=== PATIENT | male | born 1960 | race African-American/Black ===

== ENCOUNTER 2017-03-12 15:54 | Emergency (ER) | payer OTHER ==
[~2017-03-12] VITALS: Ht 175.3 cm; Wt 102.1 kg
[~2017-03-12 15:54] MED LIST: FLEXERIL PO; NAPROSYN500 MG PO; NOHOMEMEDICATIONS; NORCO 5-325 TA1 EACH PO
[2017-03-12] MEDS ORDERED: AMLODIPINE BESY10 MG PO (16:13)
[2017-03-12] MEDS ORDERED: CHLORTHALIDONE25 MG PO (16:14)
[2017-03-12] MEDS ORDERED: NAPROSYN500 MG PO (16:37)
[2017-03-12] MEDS ORDERED: NORFLEX100 MG PO (16:37)
== END 2017-03-12 17:14 | disposition home or self-care (01) ==
LOC: ER 15:54
DX: G89.29 Other chronic pain (principal); M54.5 Low back pain; Z90.49 Acquired absence of other specified parts of digestive tract

== ENCOUNTER 2019-01-06 11:06 | Emergency (ER) | payer OTHER ==
[~2019-01-06] VITALS: Ht 175.3 cm; Wt 95.3 kg
[~2019-01-06 11:06] MED LIST changes: +AMLODIPINE BESY10 MG PO; +CHLORTHALIDONE25 MG PO; +NORFLEX100 MG PO
[2019-01-06 11:08] VITALS: BP 169/68
[2019-01-06] MEDS ORDERED: NORCO 5-325 TA1 EAC1 PO (11:45)
[2019-01-06] MEDS ORDERED: CYCLOBENZAPRINE5 MG PO (11:45)
[2019-01-06] MEDS ORDERED: MOBIC15 MG PO (11:45)
== END 2019-01-06 11:50 | disposition home or self-care (01) ==
LOC: ER 11:06
DX: M54.5 Low back pain (principal); G89.29 Other chronic pain; Z90.49 Acquired absence of other specified parts of digestive tract

== ENCOUNTER → 2020-05-15 | Outpatient (CLI) | payer OTHER ==
[~2020-05-15] MED LIST changes: +CYCLOBENZAPRINE5 MG PO; +MOBIC15 MG PO; +NORCO 5-325 TA1 EAC1 PO
== END ==
LOC: SJCVCIMAG 10:48
PROVIDERS: ATTEND Internal Medicine Cardiovascular Disease
DX: I11.9 Hypertensive heart disease without heart failure (principal); E78.5 Hyperlipidemia, unspecified; F17.200 Nicotine dependence, unspecified, uncomplicated

== ENCOUNTER → 2020-11-11 | Outpatient (CLI) | payer OTHER ==
[2020-11-11 11:38] LABS: % SATURATION 3 % (20-39); IRON 13 ug/dL (65-175); TIBC 421 ug/dL (250-450)
[2020-11-11 12:44] VITALS: BP 148/68; BP 149/75
== END ==
LOC: OPONC 08:40
PROVIDERS: ATTEND Family Medicine
DX: D58.2 Other hemoglobinopathies (principal)
CPT/HCPCS: 91030; 95113

== ENCOUNTER → 2020-12-01 | Outpatient (CLI) | payer OTHER ==
[2020-12-01 13:23] LABS: ABSOLUTE RETIC COUNT 0.1128 10^6/uL; HEMATOCRIT 27.9 % (42.0-52.0); HEMOGLOBIN 7.9 gm/dL (14.0-18.0); MCH 17.2 pg (26.0-34.0); MCHC 28.5 g/dL (28.0-37.0); MCV 60.3 fL (80.0-100.0); OBSERVED RETIC COUNT 2.44 % (0.6-2.6); RBC 4.62 mil/uL (4.50-6.00); RDW 23.5 % (10.5-14.5); WBC 10.7 thou/uL (4.0-11.0)
[2020-12-01 13:31] LABS: ALBUMIN 3.6 g/dL (3.4-5.0); CALCIUM 9.5 mg/dL (8.5-10.1); CREATININE 0.9 mg/dL (0.7-1.3); POTASSIUM 3.3 mmol/L (3.5-5.1); TOTAL BILIRUBIN 0.4 mg/dL (0.2-1.0); TOTAL PROTEIN 7.9 g/dL (6.4-8.2)
[2020-12-01 13:35] LABS: % SATURATION 3 % (20-39); IRON 13 ug/dL (65-175); TIBC 476 ug/dL (250-450)
[2020-12-01 14:05] LABS: FOLIC ACID 18.2 ng/mL (8.6-58.9)
[2020-12-01 14:37] LABS: ABSOLUTE NEUTROPHILS 8.2 thou/uL (1.4-8.2)
[2020-12-01 14:39] LABS: ANISOCYTOSIS 3+; HYPOCHROMASIA 3+; MICROCYTES 3+; POLYCHROMASIA OCCASIONAL
[2020-12-01 14:44] LABS: LARGE PLATELETS FEW; PLATELET COUNT 417 thou/uL (150-400)
[2020-12-01 22:06] LABS: TESTOSTERONE* 352 ng/dL (264-916)
[2020-12-02 08:07] LABS: HEP B SURFACE Ab(ANTI-HBS Non Reactive (()); HEPATITIS B SURFACE AG Negative (Negative); HEPATITIS C VIRUS AB <0.1 (0.0-0.9)
[2020-12-02 10:07] LABS: ANA INTERPRETATION Positive (Negative)
[2020-12-03 09:08] LABS: HEMOGLOBIN 7.7 g/dL (13.0-17.7)
== END ==
LOC: LAB 11:24
PROVIDERS: ATTEND Internal Medicine
DX: D50.8 Other iron deficiency anemias (principal)

== ENCOUNTER → 2020-12-10 | Outpatient (CLI) | payer OTHER | LOC: CAT 09:07 | PROVIDERS: ATTEND Internal Medicine | DX: Z12.2 Encounter for screening for malignant neoplasm of respiratory organs (principal); Z87.891 Personal history of nicotine dependence ==

== ENCOUNTER → 2020-12-29 | Outpatient (CLI) | payer OTHER ==
[2020-12-29 12:32] LABS: HEMATOCRIT 30.6 % (42.0-52.0); HEMOGLOBIN 8.8 gm/dL (14.0-18.0); MCH 18.8 pg (26.0-34.0); MCHC 28.7 g/dL (28.0-37.0); MCV 65.6 fL (80.0-100.0); PLATELET COUNT 297 thou/uL (150-400); RBC 4.66 mil/uL (4.50-6.00); RDW 28.5 % (10.5-14.5); WBC 8.1 thou/uL (4.0-11.0)
[2020-12-29 13:05] LABS: % SATURATION 4 % (20-39); ALBUMIN 3.4 g/dL (3.4-5.0); CREATININE 0.9 mg/dL (0.7-1.3); IRON 17 ug/dL (65-175); POTASSIUM 3.7 mmol/L (3.5-5.1); TIBC 424 ug/dL (250-450); TOTAL BILIRUBIN 0.3 mg/dL (0.2-1.0); TOTAL PROTEIN 6.7 g/dL (6.4-8.2)
[2020-12-29 14:08] LABS: ABSOLUTE NEUTROPHILS 6.6 thou/uL (1.4-8.2); ANISOCYTOSIS 3+; HYPOCHROMASIA 3+; MICROCYTES 3+
== END ==
LOC: LAB 11:40
PROVIDERS: ATTEND Internal Medicine
DX: D50.8 Other iron deficiency anemias (principal)